=== PATIENT | female | born 1985 | race Caucasian/White ===

== ENCOUNTER 2017-06-21 18:45 | Emergency (ER) | payer BC, OTHER ==
[2017-06-21 18:45] VITALS: BMI 32.7
[2017-06-21 18:53] VITALS: TEMP 98.3
[2017-06-21] MEDS ORDERED: Sodium Chloride 0.9% 1,000 ML IV STA (19:09)
--- NOTE | 2017-06-21 19:16 | ED PDOC ---
Arrival/HPI - General Chief Complaint: Female Genitourinary Time Seen by Provider: 06/21/17 18:48 Historian: Patient - History of Present Illness Narrative History of Present Illness (Text): 06/21/17 19:15 A 31 year old female, at 7 weeks, presents to the emergency department complaining of vaginal bleeding and abdominal cramping since today. Patient reports spotting two days ago and brown discharge yesterday. Patient reports she had two Ultrasounds. Patient denies any other complaints at this time. Symptom Onset: Sudden Symptom Course: Unchanged Activities at Onset: Rest Context: Home Past Medical History - Provider Review Nursing Documentation Reviewed: Yes - Infectious Disease Hx of Infectious Diseases: None - Cardiac Hx Cardiac Disorders: No - Pulmonary Hx Respiratory Disorders: No - Neurological Hx Neurological Disorder: No - HEENT Hx HEENT Disorder: No - Renal Hx Renal Disorder: No - Endocrine/Metabolic Hx Endocrine Disorders: Yes Hx Hypothyroidism: Yes Hx Systemic Lupus Erythematosus: Yes - Hematological/Oncological Hx Blood Disorders: No - Integumentary Hx Dermatological Disorder: No - Musculoskeletal/Rheumatological Hx Musculoskeletal Disorders: Yes (right jaw dislocation) Hx Arthritis: Yes (rheumatoid arthritis) - Gastrointestinal Hx Gastrointestinal Disorders: No - Genitourinary/Gynecological Hx Genitourinary Disorders: No - Psychiatric Hx Psychophysiologic Disorder: No Hx Substance Use: No - Surgical History Hx Section: Yes - Anesthesia Hx Anesthesia: Yes Hx Anesthesia Reactions: No - Suicidal Assessment Feels Threatened In Home Enviroment: No Family/Social History - Physician Review Nursing Documentation Reviewed: Yes Family/Social History: No Known Family HX Smoking Status: Never Smoked Hx Alcohol Use: No Hx Substance Use: No Allergies/Home Meds Allergies/Adverse Reactions: Allergies apple peel Allergy (Uncoded 03/10/16 10:58) ITCHING Home Medications: Home Meds Medication Instructions Recorded Confirmed Hydroxychloroquine Sulfate 200 mg PO DAILY 09/06/14 06/21/17 [Plaquenil] Estradiol 1 mg PO TID 06/21/17 06/21/17 Levothyroxine [Synthroid] 0.075 mg PO DAILY 06/21/17 06/21/17 metFORMIN [glucOPHAGE] 1 tab PO BID 06/21/17 06/21/17 Review of Systems - Physician Review All systems were reviewed & negative as marked: Yes - Review of Systems Constitutional: absent: Fevers Gastrointestinal: Abdominal Pain (cramping) Genitourinary Female: Vaginal Bleeding Physical Exam Vital Signs Reviewed: Yes Vital Signs Temp Pulse Resp BP Pulse Ox 06/21/17 23:38 83 18 147/63 97 06/21/17 18:48 98.3 F 75 20 117/88 98 Temperature: Afebrile Blood Pressure: Normal Pulse: Regular Respiratory Rate: Normal Appearance: Positive for: Well-Appearing, Non-Toxic, Comfortable Pain Distress: None Mental Status: Positive for: Alert and Oriented X 3 - Systems Exam Head: Present: Atraumatic, Normocephalic Pupils: Present: PERRL Extroacular Muscles: Present: EOMI Conjunctiva: Present: Normal Mouth: Present: Moist Mucous Membranes Neck: Present: Normal Range of Motion Respiratory/Chest: Present: Clear to Auscultation, Good Air Exchange. No: Respiratory Distress, Accessory Muscle Use Cardiovascular: Present: Regular Rate and Rhythm, Normal S1, S2. No: Murmurs Abdomen: Present: Normal Bowel Sounds. No: Tenderness, Distention, Peritoneal Signs Back: Present: Normal Inspection Upper Extremity: Present: Normal Inspection. No: Cyanosis, Edema Lower Extremity: Present: Normal Inspection. No: Edema Neurological: Present: GCS=15, CN II-XII Intact, Speech Normal Skin: Present: Warm, Dry, Normal Color. No: Rashes Psychiatric: Present: Alert, Oriented x 3, Normal Insight, Normal Concentration Medical Decision Making ED Course and Treatment: 06/21/17 19:14 Impression: A 31 year old female, 7 weeks , with vaginal bleeding and abdominal cramping. Plan: -- Transvaginal US -- labs -- Urinalysis -- IV fluids -- Reassess and disposition Prior Visits: Notes and results from previous visits were reviewed. Patient was last seen in the emergency department on 09/07/14 for evaluation of right lower quadrant abdominal pain and periumbilical abdominal pain. Progress Notes: 06/21/17 19:14 Patient refused any pain medications. US First Trimester, Transabdominal US , Transvaginal IMPRESSION: Two gestational sacs in the endometrial canal. Gestational sac A demonstrates a pole with positive heart rate, estimated gestational age based on crown-rump length of 6 weeks 6 days. Gestational sac B demonstrates no pole/no heart rate. 9 mm subchorionic hemorrhage noted. Additional details as above. Followup imaging recommended. Dictated and Authenticated by: Ninoska Basurto MD 06/21/2017 9:18 PM Eastern Time ([place] & [place]) 06/21/17 23:[address] sheppard in emergency room. cleared for dc advise outpt follow up tommorowwith obgyn. - Lab Interpretations Lab Results: 06/21/17 19:25 06/21/17 19:25 Lab Results 06/21/17 19:55: Blood Type A POSITIVE, Antibody Screen Negative, BBK History Checked No verified bt 06/21/17 19:25: Beta HCG, Quant 40006.00 H 06/21/17 19:25: Sodium 138, Potassium 3.8, Chloride 100, Carbon Dioxide 26, Anion Gap 16, BUN 12, Creatinine 0.9, Est GFR ( Amer) > 60, Est GFR (Non- Af Amer) > 60, Random Glucose 92, Calcium 9.4, Total Bilirubin 0.3, AST 28, ALT 51, Alkaline Phosphatase 58, Total Protein 7.2, Albumin 3.9, Globulin 3.3, Albumin/Globulin Ratio 1.2 06/21/17 19:25: PT 10.0, INR 0.93, APTT 27.3 06/21/17 19:25: WBC 8.8, RBC 4.43, Hgb 12.5, Hct 36.4, MCV 82.2, MCH 28.2, MCHC 34.3, RDW 13.1, Plt Count 348, MPV 9.6, Gran % 53.8, Lymph % (Auto) 36.6 H, [place] % (Auto) 7.8 H, Eos % (Auto) 1.7, Baso % (Auto) 0.1, Gran # 4.71, Lymph # 3.2, [place] # 0.7 H, Eos # 0.2, Baso # 0.01 I have reviewed the lab results: Yes - RAD Interpretation Radiology Orders: 06/21/17 19:08 OB TRANSVAGINAL [US] Stat - Medication Orders Current Medication Orders: Discontinued Medications Sodium Chloride (Sodium Chloride 0.9%) 1,000 mls @ 999 mls/hr IV .Q1H1M STA Stop: 06/21/17 20:09 Last Admin: 06/21/17 19:50 Dose: 999 mls/hr - Scribe Statement The provider has reviewed the documentation as recorded by the Scribe Luis Morfin Provider Scribe Attestation: All medical record entries made by the Scribe were at my direction and personally dictated by me. I have reviewed the chart and agree that the record accurately reflects my personal performance of the history, physical exam, medical decision making, and the department course for this patient. I have also personally directed, reviewed, and agree with the discharge instructions and disposition. Disposition/Present on Arrival - Present on Arrival Any Indicators Present on Arrival: No History of DVT/PE: No History of Uncontrolled Diabetes: No Urinary Catheter: No History of Decub. Ulcer: No History Surgical Site Infection Following: None - Disposition Have Diagnosis and Disposition been Completed?: Yes Diagnosis: Threatened Disposition: HOME/ ROUTINE Disposition Time: 11:00 Condition: STABLE Discharge Instructions (ExitCare): Threatened Miscarriage (ED) Additional Instructions: please follow up with your obgyn. return to emergency room with worsening symptoms or concerns. Referrals: Urbano Rowan MD [Primary Care Provider] - Follow up with primary Forms: [facility] ([place])
[2017-06-21 20:08] LABS: BASO # 0.01 K/mm3 (0.0-2.0); BASO % 0.1 % (0.0-3.0); EOS # 0.2 (0.0-0.7); EOS % 1.7 % (1.5-5.0); GRAN # 4.71 (1.4-6.5); GRAN % 53.8 % (50.0-68.0); HEMATOCRIT 36.4 % (36.0-48.0); LYMPH # 3.2 (1.2-3.4); LYMPH % 36.6 % (22.0-35.0); MEAN CELL VOLUME 82.2 fl (80.0-105.0); MEAN CORPUSCULAR HEMOGLOBIN 28.2 pg (25.0-35.0); MEAN CORPUSCULAR HGB CONC 34.3 g/dl (31.0-37.0); MEAN PLATELET VOLUME 9.6 fl (7.0-11.0); MONO # 0.7 (0.1-0.6); MONO % 7.8 % (1.0-6.0); RED CELL DISTRIBUTION WIDTH 13.1 % (11.5-14.5); WHITE BLOOD COUNT 8.8 10^3/ul (4.5-11.0)
[2017-06-21 20:10] LABS: ALB/GLOB RATIO 1.2 (1.1-1.8); ALKALINE PHOSPHATASE 58 U/L (38-133); ALT/SGPT 51 U/L (7-56); AST/SGOT 28 U/L (15-39); BILIRUBIN,TOTAL 0.3 mg/dL (0.2-1.3); BLOOD UREA NITROGEN 12 mg/dL (7-21); CALCIUM 9.4 mg/dL (8.4-10.5); CARBON DIOXIDE 26 mmol/L (21-33); CHLORIDE 100 mmol/L (98-107); GFR AFRICAN-AMERICAN > 60; GLUCOSE,RANDOM 92 mg/dL (70-110); POTASSIUM 3.8 mmol/L (3.6-5.0); SODIUM 138 mmol/L (132-148); TOTAL PROTEIN 7.2 g/dL (5.8-8.3)
[2017-06-21 20:14] LABS: INR 0.93 (0.93-1.08); PARTIAL THROMBOPLASTIN TIME 27.3 Seconds (23.7-30.8)
--- NOTE | 2017-06-21 21:18 | US ---
EXAM: US First Trimester, Transabdominal US , Transvaginal CLINICAL HISTORY: 31 years old, female; Signs and symptoms; Lmp or gestational age (in weeks): 05/14/17; Other: Bleeding clots; ; Additional info: Vb and TECHNIQUE: Real-time transabdominal and transvaginal obstetrical ultrasound of the maternal pelvis and a first trimester with image documentation. Transvaginal imaging was used for better evaluation of the fetus and adnexa. COMPARISON: No relevant prior studies available. FINDINGS: Uterus: Two gestational sacs are seen within the endometrial canal. A pole and yolk sac are seen within the gestational sac A. [place] rump length measurement correlates with an estimated gestational age of 6 weeks 6 days. cardiac activity is seen with a heart rate of 149 beats per minute. Gestational sac B. demonstrates a yolk sac, but no pole/ nofetal heart rate is identified. Subchorionic hemorrhage noted measuring 9 mm in maximal dimension. Adnexa: Unremarkable evaluation of the right ovary. Left ovary not visualized. Free fluid: None. IMPRESSION: Two gestational sacs in the endometrial canal. Gestational sac A demonstrates a pole with positive heart rate, estimated gestational age based on crown-rump length of 6 weeks 6 days. Gestational sac B demonstrates no pole/no heart rate. 9 mm subchorionic hemorrhage noted. Additional details as above. Followup imaging recommended.
[2017-06-21 23:39] VITALS: BP 147/63; PULSE 83; RESP 18; O2SAT 97
--- NOTE | 2017-07-07 14:02 | CP.PCM.CON ---
History of Present Illness - History of Present Illness History of Present Illness: Caaled to see aracelis who had an IVF cycle and is . She reports to the ER c/ o vaginal bleeding. She denies any pelvic pain and bleeding not profuse. Pelvic sonogram reports an early twin , one with cardiac activity and one without cardiac activity. Speculum examination reveals a closed cervix with minor blood satins Past Patient History - Infectious Disease Hx of Infectious Diseases: None - Past Social History Smoking Status: Never Smoked - CARDIAC Hx Cardiac Disorders: No - PULMONARY Hx Respiratory Disorders: No - NEUROLOGICAL Hx Neurological Disorder: No - HEENT Hx HEENT Problems: No - RENAL Hx Chronic Kidney Disease: No - ENDOCRINE/METABOLIC Hx Endocrine Disorders: Yes Hx Hypothyroidism: Yes Hx Systemic Lupus Erythematosus: Yes - HEMATOLOGICAL/ONCOLOGICAL Hx Blood Disorders: No - INTEGUMENTARY Hx Dermatological Problems: No - MUSCULOSKELETAL/RHEUMATOLOGICAL Hx Musculoskeletal Disorders: Yes (right jaw dislocation) Hx Arthritis: Yes (rheumatoid arthritis) - GASTROINTESTINAL Hx Gastrointestinal Disorders: No - GENITOURINARY/GYNECOLOGICAL Hx Genitourinary Disorders: No - PSYCHIATRIC Hx Psychophysiologic Disorder: No Hx Substance Use: No - SURGICAL HISTORY Hx Section: Yes - ANESTHESIA Hx Anesthesia: Yes Hx Anesthesia Reactions: No Meds Allergies/Adverse Reactions: Allergies Allergy/AdvReac Type Severity Reaction Status Date / Time apple peel Allergy ITCHING Uncoded 03/10/16 10:58 Physical Exam - Constitutional Appears: Well - Respiratory Exam Respiratory Exam: Clear to Auscultation Bilateral - Cardiovascular Exam Cardiovascular Exam: REGULAR RHYTHM - GI/Abdominal Exam GI & Abdominal Exam: Normal Bowel Sounds - Exam Exam: NORMAL INSPECTION External exam: NORMAL EXTERNAL EXAM Bimanual exam: Uterine Enlargement Additional comments: Speculum Exam: Cervix appears closed. No active bleeding from the cervical os. - Neurological Exam Neurological exam: Oriented x3 Results - Vital Signs Recent Vital Signs: Last Vital Signs Temp 98.3 F 06/21/17 18:48 Pulse 83 06/21/17 23:38 Resp 18 06/21/17 23:38 BP 147/63 06/21/17 23:38 Pulse Ox 97 06/21/17 23:38 - Labs Result Diagrams: 06/21/17 19:25 06/21/17 19:25 Assessment & Plan (1) Threatened miscarriage in early Status: Acute - Assessment and Plan (Free Text) Plan: Recommends Pelvic rest F/U with OB Practioner in 2 days. Return to ER if excessive bleeding. - Date & Time Date: 06/21/17 Time: 23:10
== END 2017-06-21 23:40 | disposition home or self-care (01) ==
LOC: ED 18:45
DX: O20.0 Threatened abortion (principal); Z3A.01 Less than 8 weeks gestation of pregnancy
CPT/HCPCS: 76817; 80053; 84702; 85025; 85610; 85730; 86850; 86900; 96360; 99283; J7040